=== PATIENT | male | born 1935 | race African-American/Black ===

== ENCOUNTER 2018-07-11 03:56 | Emergency (ER) | payer MEDICARE ==
[~2018-07-11] VITALS: Ht 180.3 cm; Wt 84.0 kg
[2018-07-11 08:38] LABS: INR 1.1; PROTHROMBIN TIME 10.6 sec (9.1-11.1)
[2018-07-11] MEDS ORDERED: DEXTROSE 50% WATER 50ML SYRINGE IV ONE (08:40)
[2018-07-11] MEDS ORDERED: SODIUM CHLORIDE 0.9% 1,000 ML IV ONE (09:45)
[2018-07-11] MEDS ORDERED: MORPHINE SULFATE 4 MG/ML CPJ (NOT FOR IM USE) IV ONE (09:45)
[2018-07-11] MEDS ORDERED: ONDANSETRON HCL 4MG/2ML INJ IV ONE (09:45)
[2018-07-11 12:05] LABS: HEMATOCRIT. 34.2 % (42.0-52.0); HEMOGLOBIN. 11.7 g/dL (14.0-18.0); MEAN CORPUSCULAR HEMOGLOBIN 31.1 pg (28.0-32.0); MEAN PLATELET VOLUME 8.6 fl (7.4-10.4); PLATELET 251 x1000/uL (130-400); RED BLOOD CELL COUNT 3.76 mill/uL (4.7-6.1); RED CELL DISTRIBUTION WIDTH 13.8 % (11.6-14.6)
[2018-07-11 12:35] LABS: CLARITY URINE CLOUDY (CLEAR); KETONES URINE NEGATIVE (NEGATIVE); LEUKOCYTE ESTERASE URINE 1+ (NEGATIVE); NITRITE URINE NEGATIVE (NEGATIVE); OCCULT BLOOD URINE 3+ (NEGATIVE); PROTEIN URINE 4+ (NEGATIVE); SPECIFIC GRAVITY URINE 1.024 (1.005-1.030); UROBILINOGEN URINE 0.2 E.U./dL (0.2-1.0)
[2018-07-11 12:36] LABS: COLOR URINE BLOODY (YELLOW)
[2018-07-11 12:37] LABS: PLATELET ESTIMATE NORMAL
[2018-07-11 15:30] VITALS: BP 112/69
== END 2018-07-11 17:09 | disposition left against medical advice (07) ==
LOC: ER 03:56 → CANRESERV 20:37 → ENRESERV 20:37 → CANBEDREQ 07-12 09:51
DX: N39.0 Urinary tract infection, site not specified (principal); R31.9 Hematuria, unspecified; I10 Essential (primary) hypertension; E78.00 Pure hypercholesterolemia, unspecified
CPT/HCPCS: 36415; 81003; 85025; 85610; 85730; 87086; 96374; 96375; 99285; J2270; J2405; J7030; P9612; A4315